=== PATIENT | male | born 1950 | race Caucasian/White ===

== ENCOUNTER 2017-05-18 17:37 | Emergency (ER) | payer MEDICARE ==
[~2017-05-18 17:37] MED LIST: Calcium Chloride 10% 1 GM/10 ML Syringe IVPUSH ONE; EPINEPHrine 1:10,000 1 MG/10 ML Syringe IVPUSH SCH
[2017-05-18] MEDS: Sodium Chloride 0.9% 10 ML Syringe FLUSH PRN ×2 (17:42→17:49)
[2017-05-18] MEDS ORDERED: Sodium Chloride 0.9% 500 ML IV ONE (17:45)
[2017-05-18] MEDS: EPINEPHrine 1:10,000 1 MG/10 ML Syringe IVPUSH PRN ×2 (17:49→17:54)
[2017-05-18] MEDS ORDERED: Sodium Chloride 0.9% 10 ML Syringe FLUSH PRN (18:52)
--- NOTE | 2017-05-21 11:07 | ER ---
DATE SEEN: 05/18/2017 HISTORY OF PRESENT ILLNESS: This 66-year-old man who has had previous right head injury with left hemiparesis, left leg brace, serious head injuries at 19 years of age which resulted in left-sided spastic hemiparesis, dyslipidemia, seizure disorder, L4-L5 spinal stenosis and surgical decompression, and right frontoparietal occipital scalp incision for [employer] bleed and surgery, history of dyslipidemia, prostatism with outlet obstruction, hypertension, and obesity with weight 228 pounds, presented because the nursing staff at [facility] noted he had fallen down, they got him up. The nurses asked him if he is hurt and he told them that he was not, said no, then they put him on the gurney. As he was transported to the ER, he arrested and had no pulses or pressure. Throughout the ER stay, he had no pulses or pressure. EMERGENCY DEPARTMENT COURSE: The patient had IAN placed. Endotracheal tube size 8 was placed without difficulty. Confirmation with air exchange and also visualization of the cords noted. End-tidal CO2 did not come up higher than 12 to 15. Resuscitation persisted throughout with IAN. The end-tidal CO2 did not rise. He did not have return of circulation. He had pulseless electrical activity and was rechecked on multiple occasions. His arrival time was 1735 hours. His external chest compression was started by prison staff en route to the ED. Used Ambu bag until he could be intubated. He had good pulses with the IAN pump. ASSESSMENT: 1. Probable massive myocardial infarction without return of circulation and pulseless electrical activity, which did not respond to resuscitation. 2. Obesity. 3. Hypertension, treated. 4. Atrial fibrillation history. 5. Right head trauma with right head neurosurgery and left hemiparesis and hemiplegia. 6. Seizure disorder. 7. Prostatism. 8. Dyslipidemia. One hour was spent with the patient in resuscitation. Code was called at 1757 hours. /[id number] STACIE/CHARITY
== END 2017-05-18 17:57 | disposition expired ==
LOC: FB.ED 17:37
DX: I46.9 Cardiac arrest, cause unspecified (principal); I48.91 Unspecified atrial fibrillation; I10 Essential (primary) hypertension; E66.9 Obesity, unspecified; G40.909 Epilepsy, unspecified, not intractable, without status epilepticus; E78.5 Hyperlipidemia, unspecified
CPT/HCPCS: 31500; 92950; 96374; 96375; 99285; J0171; J7040; J7050